=== PATIENT | male | born 2005 | race African-American/Black ===

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

== ENCOUNTER 2024-03-10 12:58 | Emergency (ER) | payer OTHER ==
[~2024-03-10] VITALS: Ht 177.8 cm; Wt 92.7 kg
[2024-03-10 14:27] LABS: HEMATOCRIT 42.7 % (42.0-52.0); HEMOGLOBIN 14.6 g/dl (13.5-17.5); MEAN CORPUSCULAR HEMOGLOBIN 31.8 pg (27.0-33.0); MEAN CORPUSCULAR HGB CONC 34.2 g/dl (32.0-36.5); PLATELET COUNT, AUTOMATED 236 10^3/uL (150-450); RED BLOOD COUNT 4.59 10^6/uL (4.30-6.10); WHITE BLOOD COUNT 8.2 10^3/uL (4.0-10.0)
[2024-03-10 14:47] LABS: AMPHETAMINES LEVEL URINE NEGATIVE (NEGATIVE); BARBITURATES URINE NEGATIVE (NEGATIVE); BENZODIAZEPINES URINE NEGATIVE (NEGATIVE); COCAINE METABOLITE URINE NEGATIVE (NEGATIVE); METHADONE URINE NEGATIVE (NEGATIVE); OPIATES URINE NEGATIVE (NEGATIVE); PHENCYCLIDINE URINE NEGATIVE (NEGATIVE)
[2024-03-10 14:49] LABS: ETHYL ALCOHOL (ETHANOL) 0.088 % (0.000-0.010)
[2024-03-10 14:50] LABS: SALICYLATE LEVEL < 3.0 MG/DL (<30)
[2024-03-10 14:51] LABS: ALBUMIN 4.3 G/DL (3.2-5.2); ALKALINE PHOSPHATASE 72 U/L (40-129); ALT/SGPT 18 U/L (7.0-40); AST/SGOT 19 U/L (<34); BILIRUBIN,DIRECT 0.3 MG/DL (<0.4); BLOOD UREA NITROGEN 7 MG/DL (9-23); CALCIUM LEVEL 9.9 MG/DL (8.5-10.1); CARBON DIOXIDE LEVEL 27 MMOL/L (20-31); CHLORIDE LEVEL 108 MMOL/L (98-107); CREATININE FOR GFR 1.08 MG/DL (0.70-1.30); GLUCOSE, FASTING 105 MG/DL (60-100); POTASSIUM SERUM 4.3 MMOL/L (3.5-5.1); SODIUM LEVEL 140 MMOL/L (136-145); TOTAL PROTEIN 7.6 G/DL (5.7-8.2)
[2024-03-10 14:53] LABS: THYROID STIMULATING HORMONE 0.619 uIU/ML (0.48-4.17)
[2024-03-10 14:57] LABS: CANNABINOIDS URINE POSITIVE (NEGATIVE)
[2024-03-10 16:52] VITALS: BP 110/70; TEMP 98; O2SAT 99
== END 2024-03-10 16:55 | disposition home or self-care (01) ==
LOC: M ED 12:58
DX: F32.A Depression, unspecified (principal); F17.200 Nicotine dependence, unspecified, uncomplicated